=== PATIENT | female | born 1960 | race Caucasian/White ===

== ENCOUNTER → 2017-02-05 | Outpatient (CLI) | payer SELFPAY ==
--- NOTE | 2017-02-05 11:06 | PCVCIMAG ---
APPROVED REPORT Exam: Stress Echocardiogram Indication: chest pain, smoking Stress Nurse: Andreia Ford RN Status: routine Ht: 5 ft 5 in BP: 130/80 mmHg Rhythm: NSR Procedure The patient underwent an Exercise Stress Test using the Lawson Protocol. Blood pressure, heart rate, and EKG were monitored. An Echocardiogram was performed by valve technician in four stages in quad fashion. At peak stress, four selected images were obtained and placed side by side with resting images for comparison. Stress Test Details HR Resting HR: 100 bpmMax Heart Rate (APMHR): 166 bpm Max HR Achieved: 160 bpmTarget HR (85% APMHR): 141 bpm % of APMHR: 96 HR response to stress: Normal HR response to stress BP Resting BP: 130/80 mmHg Max BP: 156/86 mmHg ECG Resting ECG: Sinus Rhythm Stress ECG: Sinus Tachycardia Arrhythmia: None Recovery ECG: Sinus Rhythm Clinical Reason for Termination: Maximal effort Exercise duration: 10 min sec Highest Stage Achieved: Stage 4: 4.2 mph at 16% grade. Exercise capacity: 13.40 METs Overall Exercise Capacity for Age: Normal Stress ECG Conclusion 1. SUBJECTIVELY NEGATIVE FOR ISCHEMIA 2. ELECTROCARDIOGRAPHICALLY NEGATIVE FOR ISCHEMIA 3. ADEQUATE FUNCTIONAL CAPACITY Pre-Stress Echo The resting Echocardiogram showed normal left ventricular contractility with an estimated Ejection Fraction of about 55-60%. Normal wall motion in all segments on baseline images. Post-Stress Echo The stress Echocardiogram showed normal left ventricular contractility with an estimated Ejection Fraction of about 60-65%. Normal augmentation of wall motion in all segments on post stress images. Clinical No clinical or ECG evidence for ischemia. Conclusion Clinical Response: Non-ischemic Exercise Capacity: Average Stress ECG Response: Non-ischemic Stress Echo Images: Non-ischemic 1. LOW RISK STUDY <Conclusion> 1. LOW RISK STUDY
== END | disposition home or self-care (01) ==
LOC: PCVCIMAG 09:54
PROVIDERS: ATTEND Internal Medicine
DX: R00.0 Tachycardia, unspecified (principal); R07.9 Chest pain, unspecified; Z87.891 Personal history of nicotine dependence
CPT/HCPCS: 93325; 93351